=== PATIENT | female | born 2005 | race African-American/Black ===

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

== ENCOUNTER 2023-03-05 07:53 | Emergency (ER) | payer OTHER ==
[~2023-03-05] VITALS: Ht 165.1 cm; Wt 77.1 kg
[2023-03-05 08:08] VITALS: BP 135/76
[2023-03-05] MEDS ORDERED: PRENATA3 PO (08:21)
[2023-03-05 12:33] VITALS: BP 135/76
== END 2023-03-05 12:14 | disposition left against medical advice (07) ==
LOC: ED 07:53
DX: O21.0 Mild hyperemesis gravidarum (principal); Z3A.00 Weeks of gestation of pregnancy not specified; Z53.29 Procedure and treatment not carried out because of patient's decision for other reasons

== ENCOUNTER 2023-04-06 16:00 | Observation (INO) | payer OTHER ==
[~2023-04-06] VITALS: Ht 165.1 cm; Wt 68.0 kg
[~2023-04-06 16:00] MED LIST changes: +ZPAK PO
--- NOTE | 2023-04-06 16:27 | NUR ---
PATIENT TO ROOM 1
[2023-04-06 17:02] LABS: ALBUMIN 4.4 g/dL (3.2-5.0); ALKALINE PHOSPHATASE 53 u/l (38-126); BASO% 0.5 % (0-3); BILIRUBIN, TOTAL 0.5 mg/dL (0.02-1.3); BUN 8 mg/dL (8-21); BUN/CREATININE RATIO 16 (12-20 (CALC)); CARBON DIOXIDE 24 mmol/l (22-30); CHLORIDE 99 mmol/l (95-108); CREATININE 0.5 mg/dL (0.5-1.0); EOS% 1.9 % (0-8); GFR FOR AFR.AMER. > 60 ML/MIN (>=60 (CALC)); GFR OTHER RACES > 60 ML/MIN (>=60 (CALC)); HEMOGLOBIN 11.8 g/dl (12.0-16.0); IMMATURE GRANULOCYTES 0.2 % (0.0-5.0); LYMPH% 22.3 % (15-41); MEAN CORPUSCULAR HGB 29.5 pG CALC (26.0-32.0); MEAN CORPUSCULAR HGB CONC 34.7 g/dL CAL (32.0-36.0); MONO% 9.1 % (2-13); NEUT# 4.15 thou/uL (2.00-7.15); RED CELL DISTRI WIDTH 12.4 % (11.5-15.5); SGOT/AST 26 u/l (14-36); SODIUM 136 mmol/l (137-146); TOTAL PROTEIN 8.2 g/dL (6.3-8.2)
[2023-04-06 17:04] LABS: ANION GAP 16 (6-22 (CALC)); POTASSIUM 2.5 mmol/l (3.5-5.1)
--- NOTE | 2023-04-06 17:26 | NUR ---
PT SLEEPING IN BED, CALL LIGHT IN REACH
[2023-04-06 17:49] LABS: URINE COLOR YELLOW
[2023-04-06 17:50] LABS: URINE GLUCOSE - DIPSTICK NEGATIVE (NEGATIVE); URINE KETONE >=80 mg/dL (NEGATIVE); URINE PROTEIN - DIPSTICK 100 mg/dL (NEG-TRACE); URINE SPECIFIC GRAVITY 1.025
[2023-04-06 17:51] LABS: URINE BLOOD DIPSTICK NEGATIVE (NEGATIVE); URINE LEUK ESTERASE TRACE (NEGATIVE); URINE NITRITE - DIPSTICK NEGATIVE (Negative)
[2023-04-06 17:57] LABS: BETA-HCG, QUANT(RESULT NUMBER) 97738 mIU/mL
[2023-04-06 18:04] LABS: URINE RBC 0-2 RBC/hpf (0-5); URINE SQUAMOUS EPITHELIAL CELL MODERATE EPI/hpf (0-FEW)
--- NOTE | 2023-04-06 18:13 | NUR ---
PT TAKEN TO ULTRASOUD VIA WHEELCHAIR
--- NOTE | 2023-04-06 20:47 | NUR ---
REPORT RECEIVED FROM Romulo HAYS LPN.
--- NOTE | 2023-04-06 21:00 | NUR ---
PATIENT ARRIVED VIA STRETCHER ACCOMPANIED BY ER STAFF. PATIENT ABLE TO AMBULATE TO BE WITHOUT ASSITANCE. POTASSIUM CURRENTLY INSUFFUSING Y SITE WITH NORMAL SALINE AT 100. PATIENT DOES NOT HAVE A TELEMETRY ORDER, PER ER STAFF WRITTER WILL HAVE TO CALL DR GOMES.
[2023-04-06 21:09] VITALS: BP 114/64
--- NOTE | 2023-04-06 21:13 | NUR ---
PT CARE REPORT GIVEN TO RICKIE MEHTA. PT TRANSPORTED TO [facility] ROOM 272 VIA WHEELCHAIR.
[2023-04-06 23:52] VITALS: BP 102/68
--- NOTE | 2023-04-07 00:45 | NUR ---
ORDER OBTIANED FOR TERESA
--- NOTE | 2023-04-07 04:00 | NUR ---
PATIENT RESTING, NO APPARENT DISTRESS NOTED. RESPIRATIONS EVEN AND UNLABORED, RISE AND FALL OF CHEST NOTED. CALL LIGHT AND BEDSIDE TABLE WITHIN REACH.
[2023-04-07 04:44] VITALS: BP 97/50
[2023-04-07 05:33] LABS: ALKALINE PHOSPHATASE 37 u/l (38-126); ANION GAP 9 (6-22 (CALC)); BUN 3 mg/dL (8-21); BUN/CREATININE RATIO 7 (12-20 (CALC)); CARBON DIOXIDE 22 mmol/l (22-30); CHLORIDE 107 mmol/l (95-108); CREATININE 0.4 mg/dL (0.5-1.0); GFR FOR AFR.AMER. > 60 ML/MIN (>=60 (CALC)); GFR OTHER RACES > 60 ML/MIN (>=60 (CALC)); SGOT/AST 21 u/l (14-36); SODIUM 135 mmol/l (137-146)
[2023-04-07 05:34] LABS: ALBUMIN 2.9 g/dL (3.2-5.0); BILIRUBIN, TOTAL 0.2 mg/dL (0.02-1.3); TOTAL PROTEIN 5.4 g/dL (6.3-8.2)
[2023-04-07 05:38] LABS: MEAN CELL VOLUME 86.1 fL CALC (80.0-100.0); MEAN CORPUSCULAR HGB 30.1 pG CALC (26.0-32.0); RED BLOOD COUNT 3.09 mill/uL (4.20-5.60); RED CELL DISTRI WIDTH 12.7 % (11.5-15.5)
[2023-04-07 05:55] LABS: HEMATOCRIT 26.6 % (37.0-47.0); HEMOGLOBIN 9.3 g/dl (12.0-16.0)
--- NOTE | 2023-04-07 07:00 | NUR ---
RECEIVE REPORT FROM RICKIE MEHTA.
[2023-04-07 07:03] VITALS: BP 107/45
[2023-04-07 08:00] VITALS: BP 107/45
--- NOTE | 2023-04-07 08:00 | NUR ---
Alert and oriented patient x3. She does not report pain or discomfort at the time of this note. TV monitor on. patient is educated and oriented about medications and nursing plan for all. pt refer understand. safety and fall precautions in place. call light within reach.
[2023-04-07 10:36] VITALS: BP 101/58
[2023-04-07] MEDS ORDERED: DICLEGIS1 TAB PO (10:56)
--- NOTE | 2023-04-07 11:21 | NUR ---
Discharge instructions given. Patient verbalizes understanding of same. Discharged in stable condition pt refused Wheelchair. All belongings sent with pt.
== END 2023-04-07 11:23 | disposition home or self-care (01) ==
LOC: ED 16:00 → ED-I 19:00 → ED 19:16 → MS2 19:17
PROVIDERS: Nurse Practitioner; ADMIT Internal Medicine; ATTEND Internal Medicine
DX: O21.1 Hyperemesis gravidarum with metabolic disturbance (principal); Z3A.14 14 weeks gestation of pregnancy
CPT/HCPCS: G0378; J3475